=== PATIENT | male | born 1970 | race Caucasian/White ===

== ENCOUNTER 2017-01-15 09:48 | Outpatient (CLI) | payer OTHER ==
[2014-09-20 16:44] VITALS: BP 155/98
[2017-01-15 10:13] LABS: BASOPHILS % 0.5 (0.0-1.5); EOSINOPHILS % 2.9 % (0.0-6.8); MEAN CORPUSCULAR HEMOGLOBIN 30.7 pg (28.0-34.0); MEAN CORPUSCULAR VOLUME 89.7 fl (80.0-100.0); MONOCYTES % 3.4 % (0.0-11.0); NEUTROPHILS # 6.2 # k/uL (1.4-7.7)
--- NOTE | 2017-01-15 10:48 | Diagnostic Imaging Report ---
AMIRA COONEY [facility] [address] [facility] [address] [address] Report Submission Date: Jan 15, 2017 10:43:19 AM [employer]ILD[employer]PERVISOR Patient Study Name: CHERYL HOOD Date: Jan 15, 2017 10:14:53 AM [employer] SUPERVISOR Modality Type: CR Gender: M Description: CHEST : 70 Institution: [facility] Physician: AMIRA COONEY Examination: Portable chest History: Chest discomfort Comparison exam: None available Findings: Single view of the chest demonstrates a normal cardiac and mediastinal silhouette. Right-sided lindsey cath. Lung yanes without focal infiltrate. No effusion. Osseous structures are appropriate for age. Impression: No acute pulmonary process. Electronically signed on Jan 15, 2017 10:43:19 AM BUILD[employer]DS SUPERVISOR by: Jamal TELLEZ
[2017-01-15 10:58] LABS: eGFR (African) > 60; eGFR (Non-African) > 60
== END 2017-01-15 09:51 ==
LOC: LAB 09:48
PROVIDERS: ATTEND Family Medicine
DX: R07.9 Chest pain, unspecified (principal); I10 Essential (primary) hypertension; E66.9 Obesity, unspecified
CPT/HCPCS: 36415; 71020; 80053; 80061; 84443; 85025

== ENCOUNTER 2017-01-22 10:19 | Outpatient (CLI) | payer OTHER ==
[2014-09-20 16:44] VITALS: BP 155/98
== END 2017-01-22 10:30 ==
LOC: CARD 10:19
PROVIDERS: ATTEND Internal Medicine Cardiovascular Disease
DX: R07.9 Chest pain, unspecified (principal); I10 Essential (primary) hypertension; E66.9 Obesity, unspecified; G47.30 Sleep apnea, unspecified; Z72.0 Tobacco use
CPT/HCPCS: 99213

== ENCOUNTER 2017-07-24 07:25 | Emergency (ER) | payer OTHER ==
[2017-07-24 07:39] VITALS: BP 122/61
[2017-07-24] MEDS ORDERED: KETOROLAC TROMETHAMINE 60 MG/2 ML VIAL IM ONE (08:05)
--- NOTE | 2017-07-24 08:13 | ED Physician Documentation ---
General Adult - HISTORIAN Historian: patient - HPI Stated Complaint: L wrist pain Chief Complaint: General Adult Onset: days ago Timing: still present Severity: moderate Further Comments: yes (Pt is a 46 yo male with spontaneous onset of R wrist pain. Pt does not have a job where repetative injury might occur. Pt does not know how to account for pain. Pt has FROM.) - ROS CONST: no problems EYES/ENT: none CVS/RESP: none GI/: none MS/SKIN/LYMPH: other (L wrist pain) - PAST HX Past History: other (anxiety/depression, bipolar d/o, HTN) Surgeries/Procedures: other (appendectomy, ortho surgery) Allergies/Adverse Reactions: Allergies Allergy/AdvReac Type Severity Reaction Status Date / Time No Known Allergies Allergy Verified 07/24/17 07:37 Home Medications: Ambulatory Orders Medication Instructions Recorded Trazodone HCl [Trazodone HCl] 1 oz PO HS 07/24/17 - SOCIAL HX Smoking History: quit greater than 1 year - FAMILY HX Family History: No - VITAL SIGNS Vital Signs: Vital Signs Temp Pulse Resp BP Pulse Ox 101 H 17 122/61 93 07/24/17 07:30 07/24/17 07:30 07/24/17 07:30 07/24/17 07:30 - REVIEWED ASSESSMENTS Nursing Assessment Reviewed: Yes Vitals Reviewed: Yes Progress - Progress Progress: L wrist x-ray: neg Toradol 60 mg IM wrist splint ED Results Lab/Radiology - Orders Orders: ED Orders Category Date Time Status Wrist Splint 1T Care 07/24/17 08:06 Active WRIST 3 VIEWS OR MORE [RAD] Stat Exams 07/24/17 Ordered Ketorolac Tromethamine [Toradol] Med 07/24/17 08:05 Discontinued 60 mg IM NOW ONE General Adult Physical Exam - PHYSICAL EXAM GENERAL APPEARANCE: mild distress NECK: normal inspection, supple RESPIRATORY: no resp distress, chest non-tender, breath sounds normal CVS: reg rate & rhythm, heart sounds normal BACK: normal inspection SKIN: warm/dry, normal color EXTREMITIES: other (tenderness L wrist, mid-ventral area) NEURO: oriented X3, motor nml, sensation nml Discharge Clincal Impression: L wrist pain Referrals: Gris Scales MD [Primary Care Provider] - Condition: Good Disposition: 01 HOME, SELF-CARE Decision to Admit: NO Decision Time: 08:16
--- NOTE | 2017-07-24 09:52 | Diagnostic Imaging Report ---
JENNIFER GALINDO [facility] [address] [facility] [address] [address] Report Submission Date: July 24, 2017 8:19:05 AM CDT Patient Study Name: CHERYL HOOD Date: July 24, 2017 7:50:44 AM CDT Modality Type: DX Gender: M Description: UPPER EXTREMITY : 70 Institution: [facility] Physician: JENNIFER GALINDO Examination: Plain film left wrist History: LEFT WRIST, PAIN IN MID WRIST X4 DAYS, NO KNOWN INJURY (Hx) Comparison exams: None available Findings: 3 views the left wrist demonstrates generalized osteopenia. Articular degenerative changes. No fracture. No dislocation. No soft tissue abnormality. Impression: Osteopenia and degenerative changes. No acute appearing osseous abnormality. Electronically signed on July 24, 2017 8:19:05 AM CDT by: Jamal TELLEZ
== END 2017-07-24 08:15 | disposition home or self-care (01) ==
LOC: ED 07:25
DX: M25.532 Pain in left wrist (principal)
CPT/HCPCS: 73110; J1885; 96372; 99284; L3908

== ENCOUNTER 2017-09-19 08:13 | Emergency (ER) | payer OTHER ==
[2017-09-19 08:23] VITALS: BP 118/86
[2017-09-19] MEDS: NEOMYCIN/BACITRACIN/POLYMYXINB 1 EACH OINT.PACK TP ONE (08:30)
--- NOTE | 2017-09-19 08:34 | ED Physician Documentation ---
General Adult - HISTORIAN Historian: patient - HPI Stated Complaint: Tattoo redness Chief Complaint: General Adult Additional Information: Tattoo 10 days ago and now has some redness. No treatment. No associated signs. - ROS CONST: no problems - PAST HX Past History: other (bipolar) Allergies/Adverse Reactions: Allergies Allergy/AdvReac Type Severity Reaction Status Date / Time No Known Allergies Allergy Verified 09/19/17 08:24 - SOCIAL HX Smoking History: non-smoker - FAMILY HX Family History: No - VITAL SIGNS Vital Signs: Vital Signs Temp Pulse Resp BP Pulse Ox 97.6 F 98 H 17 118/86 95 09/19/17 08:20 09/19/17 08:20 09/19/17 08:20 09/19/17 08:20 09/19/17 08:20 - REVIEWED ASSESSMENTS Nursing Assessment Reviewed: Yes Vitals Reviewed: Yes ED Results Lab/Radiology - Orders Orders: ED Orders Category Date Time Status Neomycin/Bacitracin/Polymyxinb [Triple Antibiotic Med 09/19/17 08:28 Once Ointment] 1 each TP NOW ONE General Adult Physical Exam - PHYSICAL EXAM GENERAL APPEARANCE: no distress EENT: eye inspection normal, ENT inspection normal NECK: normal inspection, supple RESPIRATORY: no resp distress SKIN: warm/dry, normal color, other (are of red halo 2-4 mm wide, 1.5 cm long upper right forearm nexy to tattoed area. No induration, warmth, tenderness, drainage. ) EXTREMITIES: normal range of motion (gait and stance) NEURO: CN's nml as tested, motor nml, sensation nml Discharge Clincal Impression: Inflammation Referrals: Gris Scales MD [Primary Care Provider] - 2 Days Condition: Good Disposition: 01 HOME, SELF-CARE Decision to Admit: NO Decision Time: 08:30
== END 2017-09-19 08:33 | disposition home or self-care (01) ==
LOC: ED 08:13
DX: L98.9 Disorder of the skin and subcutaneous tissue, unspecified (principal)
CPT/HCPCS: 99282

== ENCOUNTER 2017-12-06 14:06 | Emergency (ER) | payer OTHER ==
--- NOTE | 2017-12-06 14:56 | ED Physician Documentation ---
General Adult - HISTORIAN Historian: patient - HPI Stated Complaint: back pain Chief Complaint: General Adult Additional Information: Right low back pain that is sometimes sharp w/o radiation, for a week. Going on vacation next week and someone told him he might have a kidney stone. Took Aleve once last week and it helped the pain, but didn't eradicate it. No fever. Says weight may have increased recently. Takes BP medication erratically. Denies injury. No other modifying factors or associated signs. Onset: hours - ROS CONST: no problems - PAST HX Past History: none Allergies/Adverse Reactions: Allergies Allergy/AdvReac Type Severity Reaction Status Date / Time No Known Allergies Allergy Verified 12/06/17 14:24 - SOCIAL HX Smoking History: non-smoker Alcohol Use: occasionally Drug Use: marijuana - FAMILY HX Family History: Yes (parents with diabetes) - VITAL SIGNS Vital Signs: Vital Signs Temp Pulse Resp BP Pulse Ox 98.1 F 103 H 20 157/120 98 12/06/17 14:11 12/06/17 14:11 12/06/17 14:11 12/06/17 14:11 12/06/17 14:11 - REVIEWED ASSESSMENTS Nursing Assessment Reviewed: Yes Vitals Reviewed: Yes ED Results Lab/Radiology - Orders Orders: ED Orders Category Date Time Status UA [URINALYSIS] Routine Lab 12/06/17 Ordered General Adult Physical Exam - PHYSICAL EXAM GENERAL APPEARANCE: obese EENT: eye inspection normal NECK: normal inspection RESPIRATORY: no resp distress, breath sounds normal CVS: reg rate & rhythm BACK: normal inspection, no CVA tenderness, other (no vertebraal tenderness. No tenderness to palpation of parspinal areas and no palpable muscle spasm. ) SKIN: warm/dry, normal color EXTREMITIES: normal range of motion (gait and stance), no evidence of injury NEURO: CN's nml as tested, motor nml, sensation nml Discharge Clincal Impression: Low back strain Qualifiers: Encounter type: initial encounter Qualified Code(s): S39.012A - Strain of muscle, fascia and tendon of lower back, initial encounter Referrals: Gris Scales MD [Primary Care Provider] - 2 Days Additional Instructions: Drink more water. You can apply ice to the sore area of your back for 30 minutes of each hour you are awake for discomfort. You can also take Aleve every 12 ours. Condition: Good Disposition: 01 HOME, SELF-CARE Decision to Admit: NO Decision Time: 14:55
[2017-12-06 14:58] VITALS: BP 149/110
[2017-12-06 17:24] LABS: APPEARANCE,URINE CLEAR (CLEAR); COLOR,URINE YELLOW (YELLOW); OCCULT BLOOD,URINE NEGATIVE (NEGATIVE); PH URINE 5.5 (5.0 - 8.0); UROBILINOGEN URINE 0.2 Eu (0.2-1.0)
== END 2017-12-06 14:56 | disposition home or self-care (01) ==
LOC: ED 14:06
DX: S39.012A Strain of muscle, fascia and tendon of lower back, initial encounter (principal); X58.XXXA Exposure to other specified factors, initial encounter; Y93.9 Activity, unspecified; Y92.9 Unspecified place or not applicable; Y99.9 Unspecified external cause status
CPT/HCPCS: 81002; 99282

== ENCOUNTER 2017-12-24 09:19 | Outpatient (CLI) | payer OTHER ==
[2017-12-24 10:50] LABS: BASOPHILS % 0.5 (0.0-1.5); MEAN CORPUSCULAR HEMOGLOBIN 29.1 pg (28.0-34.0); NEUTROPHILS # 7.8 # k/uL (1.4-7.7)
[2017-12-24 12:01] LABS: eGFR (Non-African) > 60
== END 2017-12-24 09:20 ==
LOC: LAB 09:19
PROVIDERS: ATTEND Physician Assistant
DX: R61 Generalized hyperhidrosis (principal); R63.1 Polydipsia; R35.0 Frequency of micturition; R81 Glycosuria; R73.9 Hyperglycemia, unspecified; E78.5 Hyperlipidemia, unspecified
CPT/HCPCS: 36415; 80053; 80061; 83036; 85025

== ENCOUNTER 2017-12-26 14:43 | Outpatient (CLI) | payer OTHER ==
--- NOTE | 2017-12-26 21:59 | Diagnostic Imaging Report ---
KORINA CABEZAS [facility] [address] [facility] [address] [address] Report Submission Date: Dec 26, 2017 3:42:44 PM CDT Patient Study Name: CHERYL HOOD Date: Dec 26, 2017 3:06:42 PM CDT Modality Type: DX Gender: M Description: SPINE : 70 Institution: [facility] Physician: KORINA CABEZAS Examination: Plain film lumbar spine History: INCREASING BILATERAL LOW BACK PAIN, NO KNOWN INJURY, HX OF MELANOMA, ELEVATED ALK. PHOS LEVEL (Hx) Findings: 5 views of the lumbar spine demonstrate normal height. No anterior compression. Scattered osteophytes. Oblique views demonstrate facet degenerative changes. No soft tissue abnormalities. Impression: Degenerative changes. No compression deformity. If suspect osseous lesion - can be further assessed with bone scan or MRI. Electronically signed on Dec 26, 2017 3:42:44 PM CDT by: Jamal TELLEZ
== END 2017-12-26 14:44 ==
LOC: RAD 14:43
PROVIDERS: ATTEND Physician Assistant
DX: M54.5 Low back pain (principal); R74.8 Abnormal levels of other serum enzymes
CPT/HCPCS: 72110

== ENCOUNTER 2018-01-10 08:08 | Outpatient (CLI) | payer OTHER ==
[2018-01-10 09:14] LABS: eGFR (Non-African) > 60
== END 2018-01-10 08:10 ==
LOC: LAB 08:08
PROVIDERS: ATTEND Physician Assistant
DX: R74.8 Abnormal levels of other serum enzymes (principal)
CPT/HCPCS: 36415; 80053

== ENCOUNTER 2018-01-28 12:52 | Outpatient (CLI) | payer OTHER ==
--- NOTE | 2018-02-03 15:14 | HISTORY AND PHYSICAL REPORT ---
REFERRING PHYSICIAN: Dr. Gris Scales Dear Dr. Scales: HISTORY OF PRESENT ILLNESS: I had the opportunity of seeing Severiano Metzger today as an outpatient at [facility]. This is a very nice 47-year-old white male with a history of low back pain. Mr. Metzger has a 5-year history of back pain radiating down both legs, symptoms consistent with neurogenic claudication. He has to lean over the grocery cart and lean over the kitchen counter. If he walks upright, his back begins to hurt and both legs become achy and weak and he has to sit down. He says his father had a similar condition. He says the right is equal to the left. He has not had any treatment. He does suffer from morbid obesity and is a recently diagnosed diabetic. He says he has been started on metformin twice a day. His blood glucose today was 245. He does not yet have a glucometer at home. He denies incontinence of bowel or bladder. He has symptoms of classic neurogenic claudication. PAST MEDICAL HISTORY: 1. History of vision problems. 2. Hearing loss. 3. Hypertension. 4. Melanoma. 5. Depression. 6. Anxiety. 7. Diabetes. 8. Morbid obesity. 9. Sleep apnea. 10. Asthma. 11. GERD. 12. Tinnitus. 13. PTSD bipolar disorder. PAST SURGICAL HISTORY: 1. Left foot fracture repair. 2. Right tibia/fibula fracture that was repaired. 3. Appendectomy. 4. Melanoma removed from his scalp in 2013. DAILY MEDICATIONS: 1. Omeprazole 20 mg daily. 2. Aspirin 81 mg daily. 3. Nitroglycerin 0.4 mg sublingual p.r.n. 4. Lisinopril 20 mg daily. 5. Hydroxyzine 50 mg t.i.d. 6. Trazodone 50 mg at bedtime. 7. Lamotrigine 100 mg at bedtime. 8. Metformin 1000 mg b.i.d. 9. Wellbutrin unknown milligrams daily. ALLERGIES: He has no known drug allergies. SOCIAL HISTORY: He is a former smoker. Unknown how much and unknown when he quit. Previously drank alcohol. Admitted to a history of recreational drug use, none current. He is . He has 2 children. He completed the 9th grade. He is not currently employed. His previous occupation was in lawn care. He is disabled for unknown reason. FAMILY HISTORY: Family history includes his father with cancer. Mother with heart disease. Siblings with cancer. REVIEW OF SYSTEMS: In the last month or so, he reports a weight gain, chest pain, shortness of breath, feeling depressed, and feeling anxious. His pain is worsened with lying down for prolonged periods, standing, bending, sitting, walking, twisting, getting up from a chair, cough, sneeze, changes in weather, cold, stress, fatigue, gradually worsens as the day progresses, or getting up in the morning. His pain is improved with frequent position changes. PHYSICAL EXAMINATION: General: This is 6 feet tall and weighs 146 kilograms. Vital Signs: BP: 140/80, P: 76, R: 20, oxygen saturation is 96% on room air. HEENT: Pupils are equal, round, and reactive to light and accommodation. Extraocular movements intact. No facial droop. Neck: There is full range of motion of the cervical spine. No evidence of adenopathy. Thyroid is nontender, not enlarged. Carotids are without bruits. Chest: Clear to auscultation bilaterally. Normal chest excursion. Heart: Regular rate and rhythm without murmur. Abdomen: Benign. Normoactive bowel sounds. Motor/sensory: Intact in the upper and lower extremities. Moves all extremities freely. Back: There is mildly positive straight leg raise bilaterally. Negative assisted extension and negative extension rotation. Strength is 5/5 and equal in lower extremities. Reflexes are 2+ and equal in patellar tendon and Achilles tendon. DIAGNOSTIC STUDIES: X-ray of the lumbar spine reveals grade 1 spondylolisthesis at L5-S1 with some spondylolytic changes in the lower facets. ASSESSMENT: 1. Spinal stenosis with neurogenic claudication. 2. Morbid obesity. 3. Uncontrolled blood sugar at this point. PLAN: We will obtain an MRI study. I will follow this gentleman up. I would consider him a candidate for a caudal epidural steroid injection. Dr. Scales, thank you very much for allowing me to take part in the care of this nice gentleman. I appreciate the opportunity to take part in the care of your patients. cc: Dr. Gris TELLEZ
== END 2018-01-28 12:53 ==
LOC: OUT 12:52
PROVIDERS: ATTEND Anesthesiology Pain Medicine
DX: M48.062 Spinal stenosis, lumbar region with neurogenic claudication (principal); E66.01 Morbid (severe) obesity due to excess calories; E11.65 Type 2 diabetes mellitus with hyperglycemia
CPT/HCPCS: 99204; G0463

== ENCOUNTER 2018-05-27 11:14 | Emergency (ER) | payer OTHER ==
--- NOTE | 2018-05-27 11:36 | ED Physician Documentation ---
General Adult - HISTORIAN Historian: patient - HPI Stated Complaint: left arm pain x1 month, shortness of breath Chief Complaint: General Adult Onset: other (months ago) Further Comments: yes (47 year old male patient presents with complaints of "left sided body pain", patient reports being short of breath with exercation and having chest pain for a few months. Patient was last seen for a history of low back pain by Dr Simmons in 01/2018, MRI was recommended. Patient has not had the MRI due to "problems with my insurance"; patient has not seen Dr Scales since Dec 2017. Denies using any OTC medications for his discomfort and has not discussed with his PCP. Denies N/V or diaphoresis with chest pain and exerction.) - ROS CONST: no problems EYES/ENT: none CVS/RESP: chest pain, shortness of breath. denies: cough GI/: none MS/SKIN/LYMPH: none. denies: leg swelling NEURO/PSYCH: denies: headache, fainting, dizziness, tingling, numbness, difficulty walking, difficulty with speech, anxiety, depression, other - PAST HX Past History: hypertension Other History: diabetes Type 2, other (Melanoma, depression, anxiety, morbid obesity, sleep apnea, GERD, PTSD) Surgeries/Procedures: other (Left foot, Rt Tib/Fib ORIF, appendectomy) Allergies/Adverse Reactions: Allergies Allergy/AdvReac Type Severity Reaction Status Date / Time No Known Allergies Allergy Verified 05/27/18 11:44 - SOCIAL HX Smoking History: quit less than 1 year - FAMILY HX Family History: Yes (Father - CA; Mother - CAD) - VITAL SIGNS Vital Signs: Vital Signs Temp Pulse Resp BP Pulse Ox 96.7 F L 107 H 20 132/85 95 05/27/18 11:17 05/27/18 11:17 05/27/18 11:17 05/27/18 11:17 05/27/18 11:17 - REVIEWED ASSESSMENTS Nursing Assessment Reviewed: Yes Vitals Reviewed: Yes Progress - Progress Progress: D DIMR is negative. Patient ambulated in ER with monitor; Sat remained 94%, HR up to 125. Dyspnea likely related to morbid obesity; may need to add beta geena. Instructed patient to follow up with PCP and pain doctor. ED Results Lab/Radiology - Orders Orders: ED Orders Category Date Time Status CBC/PLATELET/DIFF Stat Lab 05/27/18 11:34 Ordered CMP Stat Lab 05/27/18 11:34 Ordered TROPONIN I (cTnI) Stat Lab 05/27/18 11:34 Ordered General Adult Physical Exam - PHYSICAL EXAM GENERAL APPEARANCE: [id number] N EENT: eye inspection normal, [place] RESPIRATORY: no resp distress, chest non-tender, breath sounds normal CVS: reg rate & rhythm, heart sounds normal, equal pulses, no murmur, no gallop, PMI nml, no JVD, no friction rub, 24 ABDOMEN: soft, no organomegaly, normal bowel sounds, no abdominal bruit, no distension, other (morbid obesity) BACK: normal inspection, no CVA tenderness SKIN: normal color, warm/dry, NR, INT, PAL, DR EXTREMITIES: non-tender, normal range of motion, no evidence of injury, no edema, J, CONTACT PERSON NEURO: oriented X3, CN's nml as tested, motor nml, sensation nml, mood/affect nml Discharge Clincal Impression: Dyspnea on exertion, Tachycardia Additional Instructions: Make a follow up appointment with Dr Scales to check your BP and heart rate. You may need to adjust your medications. Make a follow up appointment with Dr Simmons regarding your MRI and back discomfort. You may take Tylenol or Ibuprofen as needed for pain. Condition: Stable Disposition: 01 HOME, SELF-CARE Decision to Admit: NO Decision Time: 13:10
[2018-05-27 11:56] LABS: BASOPHILS % 0.7 (0.0-1.5); EOSINOPHILS % 2.9 % (0.0-6.8); MONOCYTES % 4.4 % (0.0-11.0); NEUTROPHILS # 7.8 # k/uL (1.4-7.7)
[2018-05-27 12:18] LABS: eGFR (Non-African) 57
[2018-05-27 13:39] VITALS: BP 122/76
== END 2018-05-27 13:18 | disposition home or self-care (01) ==
LOC: ED 11:14
DX: R06.09 Other forms of dyspnea (principal); R00.0 Tachycardia, unspecified
CPT/HCPCS: 36415; 80053; 84484; 85025; 85379; 99282; 99283

== ENCOUNTER 2018-06-17 08:26 | Outpatient (CLI) | payer OTHER | END 2018-06-17 08:31 | disposition home or self-care (01) | LOC: LAB 08:26 | PROVIDERS: ATTEND Family Medicine | DX: E11.9 Type 2 diabetes mellitus without complications (principal) | CPT/HCPCS: 36415; 83036 ==

== ENCOUNTER 2018-09-26 08:28 | Outpatient (CLI) | payer OTHER | END 2018-09-26 08:30 | LOC: SUATTDRO 08:28 → LAB 08:28 | PROVIDERS: ATTEND Family Medicine | DX: Z13.228 Encounter for screening for other metabolic disorders (principal) | CPT/HCPCS: 36415 ==

== ENCOUNTER 2018-12-11 08:12 | Inpatient (IN) | payer OTHER ==
[2018-12-11] MEDS ORDERED: LIDOCAINE HCL 1% PF 300MG/30ML VIAL ONE (08:48)
[2018-12-11] MEDS ORDERED: BUPIV. HCL 0.25% (2.5MG/ML)/EPI. (1:200,000) PF 10 ML VIAL IM ONE (08:48)
[2018-12-11] MEDS ORDERED: SCOPOLAMINE HYDROBROMIDE 1.5MG/72HR PATCH TD ONE (08:48)
[2018-12-11] MEDS ORDERED: PROPOFOL 200 MG/20 ML VIAL IV ONE (08:48)
[2018-12-11] MEDS ORDERED: MIDAZOLAM HCL 2 MG/2 ML VIAL ONE (08:48)
[2018-12-11] MEDS ORDERED: LIDOCAINE HCL 2% PF 100MG/5ML VIAL IJ ONE (08:48)
[2018-12-11] MEDS ORDERED: SEVOFLURANE 250 ML LIQUID IH ONE (08:48)
[2018-12-11] MEDS ORDERED: LACTATED RINGERS 1,000 ML IV.SOLN IV ONE ×2 (08:48)
[2018-12-11] MEDS ORDERED: ROCURONIUM BROMIDE 10 MG/ML 5ML VIAL ONE (08:48)
[2018-12-11] MEDS ORDERED: SUGAMMADEX SODIUM 200 MG/2 ML VIAL IV ONE (08:48)
[2018-12-11] MEDS ORDERED: ENOXAPARIN SODIUM 40 MG/0.4 ML DISP.SYRIN SQ ONE (08:48)
[2018-12-11] MEDS ORDERED: DEXAMETHASONE SODIUM PHOSPHATE 10 MG/ML VIAL ONE (08:48)
[2018-12-11] MEDS ORDERED: LABETALOL HCL 20 MG/4 ML SYRINGE IV ONE (08:48)
[2018-12-11] MEDS ORDERED: SODIUM CHLORIDE IRRIG SOLUTION 3,000 ML IRRIG.SOLN IR ONE (08:48)
[2018-12-11] MEDS ORDERED: ONDANSETRON HCL/PF 4 MG/ 2ML VIAL ONE (08:48)
[2018-12-11] MEDS ORDERED: ceFAZolin SODIUM 1 GM VIAL ONE (08:48)
[2018-12-23 07:55] LABS: BASOPHILS % 0.4 % (0.0-1.5); NEUTROPHILS # 5.8 # k/uL (1.4-7.7); eGFR (Non-African) 41
[2018-12-23 09:53] LABS: BASOPHILS % 0.4 % (0.0-1.5); NEUTROPHILS # 11.6 # k/uL (1.4-7.7); eGFR (Non-African) 58
--- NOTE | 2018-12-26 07:03 | Operative Note ---
PROCEDURE DATE: 12/11/2018 PREOPERATIVE DIAGNOSIS: 1. Morbid obesity. 2. Hypertension. 3. Obstructive sleep apnea. 4. Type 2 diabetes. 5. Gastroesophageal reflux disease. POSTOPERATIVE DIAGNOSIS: 1. Morbid obesity. 2. Hypertension. 3. Obstructive sleep apnea. 4. Type 2 diabetes. 5. Gastroesophageal reflux disease. PROCEDURES PERFORMED: 1. Laparoscopic vertical sleeve gastrectomy. 2. Upper gastrointestinal endoscopy. SURGEON: Luc Marie M.D. INDICATIONS FOR PROCEDURE: Mr. Metzger is a 48-year-old male who presented with features of morbid obesity. He was noted to have a weight of 316 pounds with a BMI of 45.5 with the above-listed comorbidities. The patient was advised laparoscopic vertical sleeve gastrectomy. The patient showed understanding and agreed to proceed. DESCRIPTION OF PROCEDURE: After explaining to the patient in detail and informed consent was obtained, the patient was identified in the preoperative holding area. The patient was transferred to the operating room and was placed in supine position. Sequential compressive devices were placed for DVT prophylaxis. Preoperative antibiotics were given. After induction of anesthesia, the abdomen was prepped and draped in a sterile fashion. Through a left upper quadrant 1-cm incision, and using Optiview technique, the peritoneal cavity was entered and pneumoperitoneum was created. Thereafter, under direct vision, another 5-mm trocar was placed in the left midabdomen and another 15-mm trocar was placed in the right midabdomen. Through a 1-cm incision in the right subcostal region, another 5-mm trocar was placed. Through a 1-cm incision in the epigastrium, a Elizabeth retractor was introduced and the left lobe of the liver was retracted. On initial inspection, the patient was noted to have no evidence of hiatal hernia. I took down the gastroepiploic vessels using a LigaSure. This was continued superiorly. The short gastric vessels were taken down. The gastrophrenic ligament was divided and the Angle of His was mobilized. The posterior attachments of the stomach on the pancreas were released. Distally, the gastroepiploic vessels were taken down up to about 4 cm proximal to the pylorus. At this point, a #38 M[place]ese Hurst Bougie was introduced into the stomach and was placed along the lesser curve. The stomach was then divided in a vertical fashion with multiple Endo JAY Covidien Black Load Staplers. The first firing was directed outwards towards the greater curvature. Subsequent firings were directed towards the Angle of His to create a loose sleeve around the #38 Maltese bougie. The bougie was then removed and an upper GI endoscopy was performed at this point. The scope was introduced into the esophagus and was gradually advanced into the stomach. The GE junction appeared normal. The sleeve size appeared normal. No evidence of any active bleeding was noted. The stomach was insufflated with air and irrigation of fluid along the staple line revealed no evidence of air leak. The stomach was then suctioned out and the scope was removed. Absolute hemostasis was ensured. Thorough saline irrigation was given. The Elizabeth retractor was removed. Approximately 10 mL of a lidocaine- Marcaine mix was instilled under the left hemidiaphragm. The sleeve gastrectomy specimen was removed. The abdomen was then deflated. The incisions were closed with 4-0 Monocryl. Dermabond was applied. Approximately 10 mL of a lidocaine- Marcaine mix was injected into all the incisions. The patient was awakened from anesthesia and was transferred to the recovery room in stable condition. ESTIMATED BLOOD LOSS: Approximately 10 mL. CONDITION OF THE PATIENT: Stable. FLUIDS GIVEN: Per Anesthesia note. SPECIMEN(S) SENT: Sleeve gastrectomy specimen. COMPLICATIONS: None. ANESTHESIA: General. Luc Marie M.D. KIERAN/[email or web address] (Please copy [facility] provider when applicable) Job #[id number] GEOFF
== END 2018-12-13 09:20 | disposition home or self-care (01) | DRG 621 ==
LOC: OPSURG 08:12 → SOUTH 14:40
PROVIDERS: ADMIT Nurse Practitioner Family; ATTEND Nurse Practitioner Family
PROC: 0DB64Z3 Excision of Stomach, Percutaneous Endoscopic Approach, Vertical (ICD-10-PCS; principal; 2018-12-11)
DX: E66.01 Morbid (severe) obesity due to excess calories (principal); G47.33 Obstructive sleep apnea (adult) (pediatric); I12.9 Hypertensive chronic kidney disease with stage 1 through stage 4 chronic kidney disease, or unspecified chronic kidney disease; E11.22 Type 2 diabetes mellitus with diabetic chronic kidney disease; F32.9 Major depressive disorder, single episode, unspecified; F41.9 Anxiety disorder, unspecified; K21.9 Gastro-esophageal reflux disease without esophagitis; N18.9 Chronic kidney disease, unspecified; M19.90 Unspecified osteoarthritis, unspecified site; G89.29 Other chronic pain; J45.909 Unspecified asthma, uncomplicated; M54.5 Low back pain; F31.9 Bipolar disorder, unspecified; Z79.82 Long term (current) use of aspirin; Z99.89 Dependence on other enabling machines and devices; Z79.899 Other long term (current) drug therapy; Z79.84 Long term (current) use of oral hypoglycemic drugs; Z87.891 Personal history of nicotine dependence; Z68.42 Body mass index [BMI] 45.0-49.9, adult; Z85.820 Personal history of malignant melanoma of skin; Z90.49 Acquired absence of other specified parts of digestive tract
CPT/HCPCS: 36415; 80053; 85025; 88305; 97116; 97161; A9270; J0690; J1650; J2001; J2250; J2405; J2704; J7030; J7120; 43235; 43775; 99221; 99231; 99238

== ENCOUNTER 2019-01-12 10:47 | Outpatient (CLI) | payer OTHER ==
[2019-01-12 11:28] LABS: eGFR (Non-African) 29
== END 2019-01-12 10:52 ==
LOC: LAB 10:47
PROVIDERS: ATTEND Family Medicine
DX: E11.9 Type 2 diabetes mellitus without complications (principal)
CPT/HCPCS: 36415; 80048